=== PATIENT | male | born 1990 | race American Indian/Alaskan Native ===

== ENCOUNTER 2017-02-11 18:44 | Emergency (ER) | payer MEDICAID ==
[2017-02-11] MEDS ORDERED: DUONEB *Not for PRN Use IH ONE (19:20)
[2017-02-11] MEDS ORDERED: DELTASONE PO ONE (19:20)
[2017-02-11] MEDS ORDERED: PROVENTIL IH ONE ×2 (19:21→20:22)
--- NOTE | 2017-02-11 21:42 | Emergency Department Report ---
Upper Respiratory HPI - HPI Chief Complaint: Adult Asthma Stated Complaint: ASTHMA ,KEARA Time Seen by Provider: 02/11/17 21:38 Duration: 3 Days URI Symptoms: Rhinorrhea: Yes, Sore Throat: No, Ear Pain: No, Cough: Yes, Shortness of Breath: Yes, Sick Contacts: No, Unable to Take Fluids: No, Urine Output Abnormal: No, Listless Behavior: No Other History: out of albuterol x 1 month - Home Meds and Allergies Home Medications: Previous Rx's Medication Instructions Recorded Last Taken Type ALBUTEROL Inhaler [ProAir HFA 2 puff IH QID PRN #1 inhalation 02/11/17 Unknown Rx Inhaler] ALBUTEROL NEB's [Proventil 0.083% 2.5 mg IH QID PRN #25 nebu 02/11/17 Unknown Rx NEBS] Azithromycin [Zithromax Z-BERNADETTE] 250 mg PO DAILY #6 tab 02/11/17 Unknown Rx P-Ephed HCl/Codeine/Guaifen 5 ml PO Q6H PRN #120 ml 02/11/17 Unknown Rx [Cheratussin DAC 30-10-100 mg/5 ml] predniSONE [Deltasone] 40 mg PO QDAY #10 tab 02/11/17 Unknown Rx Allergies/Adverse Reactions: Allergies Allergy/AdvReac Type Severity Reaction Status Date / Time garlic Allergy Anaphylaxis Verified 02/11/17 19:20 Penicillins Allergy Rash Verified 02/11/17 19:20 ED Review of Systems ROS: Stated complaint: ASTHMA ,KEARA Other details as noted in HPI Constitutional: denies: chills, fever Eyes: denies: eye pain, eye discharge, vision change ENT: throat pain, congestion Respiratory: cough, shortness of breath, wheezing Cardiovascular: denies: chest pain, palpitations, dyspnea on exertion, paroxysmal nocturnal dyspnea Endocrine: no symptoms reported Gastrointestinal: denies: abdominal pain, nausea, diarrhea Genitourinary: denies: urgency, dysuria Musculoskeletal: denies: back pain, joint swelling, arthralgia Skin: denies: rash, lesions Neurological: denies: headache, weakness, paresthesias Psychiatric: denies: anxiety, depression Hematological/Lymphatic: denies: easy bleeding, easy bruising ED Past Medical Hx - Past Medical History Previous Medical History?: Yes Hx Asthma: Yes - Surgical History Past Surgical History?: Yes Additional Surgical History: jaw sx, hardware in jaw - Social History Smoking Status: Light Tobacco Smoker Substance Use Type: None - Medications Home Medications: Home Medications Medication Instructions Recorded Confirmed Last Taken Type ALBUTEROL Inhaler [ProAir HFA 2 puff IH QID PRN #1 inhalation 02/11/17 Unknown Rx Inhaler] ALBUTEROL NEB's [Proventil 0.083% 2.5 mg IH QID PRN #25 nebu 02/11/17 Unknown Rx NEBS] Azithromycin [Zithromax Z-BERNADETTE] 250 mg PO DAILY #6 tab 02/11/17 Unknown Rx P-Ephed HCl/Codeine/Guaifen 5 ml PO Q6H PRN #120 ml 02/11/17 Unknown Rx [Cheratussin DAC 30-10-100 mg/5 ml] predniSONE [Deltasone] 40 mg PO QDAY #10 tab 02/11/17 Unknown Rx ED Bronchiolitis Physical Exam - Exam General: Vital signs noted. No distress. Alert and acting appropriately. HEENT: Yes Pharyngeal Erythema, Yes Rhinorrhea, No Conjuctival Injection, No Dry Mucous Membranes Ear: Neither TM Bulge, Neither TM Erythema, Neither EAC Discharge Neck: No Adenopathy, No Rigidity Lungs: Yes Good Air Exchange, Yes Wheezes (bilat ), Yes Cough (productive clear ), No Clear Lung Sounds (bilat mild exp wheezes ), No Stridor, No Nasal Flaring , No Retractions, No Use of Accessory Muscles Heart: Yes Regular, No Murmur Abdomen: Yes Normal Bowel Sounds, No Tenderness, No Peritoneal Signs Skin: No Rash, No Eczema Neurologic: Alert and oriented, no deficits. Musculoskeletal: Unremarkable. ED Bronchiolitis Tests - Testing Other Tests: pt refuses cxr Treatments - Treaments Treatment: Improved Albuterol (breathing improved with duoneb and steroid tx) ED Physical Exam - General Limitations: No Limitations General appearance: alert, in no apparent distress - Head Head exam: Present: atraumatic, normocephalic - Eye Eye exam: Present: normal appearance, PERRL, EOMI Pupils: Present: normal accommodation - ENT ENT exam: Present: mucous membranes moist, TM's normal bilaterally, normal external ear exam - Expanded ENT Exam Expanded Mouth exam: Present: tongue normal. Absent: trismus, tongue elevation Teeth exam: Present: normal inspection Throat exam: Positive: normal inspection, tonsillar erythema, tonsillomegaly, other (uvula midline no stridor ). Negative: tonsillar exudate, R peritonsillar mass, L peritonsillar mass - Neck Neck exam: Present: normal inspection, full ROM. Absent: tenderness, lymphadenopathy, thyromegaly - Respiratory Respiratory exam: Present: normal lung sounds bilaterally, wheezes (mild bilat upper exp wheezing ). Absent: respiratory distress, rales, rhonchi, chest wall tenderness, accessory muscle use, decreased breath sounds, prolonged expiratory - Cardiovascular Cardiovascular Exam: Present: regular rate, normal rhythm, normal heart sounds. Absent: systolic murmur, diastolic murmur, rubs, gallop - GI/Abdominal GI/Abdominal exam: Present: soft, normal bowel sounds. Absent: distended, tenderness, guarding, rebound, rigid, mass, bruit, hernia - Rectal Rectal exam: Present: deferred - Extremities Exam Extremities exam: Present: normal inspection, full ROM, normal capillary refill. Absent: tenderness, pedal edema, joint swelling, calf tenderness - Back Exam Back exam: Present: normal inspection - Neurological Exam Neurological exam: Present: alert, oriented X3 - Psychiatric Psychiatric exam: Present: normal affect, normal mood - Skin Skin exam: Present: warm, dry, intact, normal color. Absent: rash ED Course Vital Signs 02/11/17 02/11/17 19:12 20:47 Temperature 98.6 F Pulse Rate 99 H 129 H Respiratory 24 22 Rate Blood Pressure 160/97 Blood Pressure 160/97 [Left] O2 Sat by Pulse 100 100 Oximetry ED Medical Decision Making - Medical Decision Making pt is a 26 y/o aam with hx of asthma out of medication x 1 month pt is current is a/o x 3 ambulatory appears nontoxic speaking in full sentences ambulated entire fast track without increased sob, pt currently advise breathing has returned to baseline after neb/steroids given in ed, exam: mild exp wheezing, no dillard no pnd no edema nad, pt refuses chest xray as " I don't want an xray its not that bad", there is no fever no chills refuses repeat vital signs, as I have to go. plan: refill albuterol, prednisone po, albuterol inhaler, zpack follow up with primary doctor on 3-4 days return to emergency if symptoms worsen Critical care attestation.: If time is entered above; I have spent that time in minutes in the direct care of this critically ill patient, excluding procedure time. ED Disposition Clinical Impression: Bronchitis Asthma Qualifiers: Asthma severity: mild intermittent Asthma complication type: with acute exacerbation Qualified Code(s): J45.21 - Mild intermittent asthma with (acute) exacerbation Disposition: TO HOME OR SELFCARE Is pt being admited?: No Does the pt Need Aspirin: No Condition: Good Instructions: Chronic Bronchitis (ED), Asthma (ED) Prescriptions: ALBUTEROL Inhaler [ProAir HFA Inhaler] 2 puff IH QID PRN #1 inhalation PRN Reason: Shortness Of Breath ALBUTEROL NEB's [Proventil 0.083% NEBS] 2.5 mg IH QID PRN #25 nebu PRN Reason: wheezing / shortness of breath Azithromycin [Zithromax Z-BERNADETTE] 250 mg PO DAILY #6 tab P-Ephed HCl/Codeine/Guaifen [Cheratussin DAC 30-10-100 mg/5 ml] 5 ml PO Q6H PRN #120 ml PRN Reason: Cough predniSONE [Deltasone] 40 mg PO QDAY #10 tab Referrals: PRIMARY CARE, [Primary Care Provider] - 3-5 Days Forms: Work/School Release Form(ED) Time of Disposition: 21:55
[2017-02-11 22:18] VITALS: BP 134/91
== END 2017-02-11 22:06 | disposition home or self-care (01) ==
LOC: ED 18:44
DX: J45.21 Mild intermittent asthma with (acute) exacerbation (principal); J40 Bronchitis, not specified as acute or chronic; F17.200 Nicotine dependence, unspecified, uncomplicated; Z88.8 Allergy status to other drugs, medicaments and biological substances; Z88.0 Allergy status to penicillin
CPT/HCPCS: 93005; 93010; 94640; 99283; J7512